=== PATIENT | male | born 1930 | race Hispanic/Latino ===

== ENCOUNTER 2017-11-29 15:46 | Observation (INO) | payer OTHER, MEDICARE ==
[~2017-11-29] VITALS: Ht 160 cm; Wt 67.4 kg
[~2017-11-29 15:46] MED LIST: CARV3.12 PO; FINA5TAB41 PO; IRON150C5 PO; PANT40TA25 PO; SIMV40TA59 PO; VALS160T29 PO; VALS1TAB75 PO
[2017-11-29 16:38] LABS: BASOPHILS % (AUTO) 0.8 % (0.0-5.0); EOSINOPHILS % (AUTO) 0.2 % (0.0-8.0); LYMPHOCYTES % (AUTO) 8.7 % (21.0-51.0); MEAN CORPUSCULAR HEMOGLOBIN 27.6 pg (27.0-33.0); MEAN CORPUSCULAR HGB CONC 33.9 g/dL (32.0-36.0); MEAN CORPUSCULAR VOLUME 81.5 fL (79-99); MONOCYTES % (AUTO) 11.6 % (3.0-13.0); NEUTROPHILS % (AUTO) 78.7 % (40.0-77.0); NUCLEATED RED BLOOD CELLS 0.9 % (0.0-0.19); PLATELET COUNT (AUTO) 139 K/uL (130-400); RED BLOOD CELL COUNT(AUTO) 2.47 MIL/uL (4.50-6.20); RED CELL DISTRIBUTION WIDTH 17.8 % (11.0-15.5); WHITE BLOOD COUNT (AUTO) 9.4 K/uL (4.8-10.8)
[2017-11-29 16:47] LABS: CREATININE 1.3 mg/dL (0.5-1.5); POTASSIUM 3.9 mmol/L (3.5-5.1)
[2017-11-29 16:48] LABS: HEMATOCRIT 20.2 % (42-54)
[2017-11-29 16:49] LABS: INR 1.29 (0.85-1.15); PARTIAL THROMBOPLASTIN TIME 31.5 SEC (26.3-35.5); PROTHROMBIN TIME 13.5 SEC (9.6-11.6)
[2017-11-29 17:07] LABS: ALBUMIN 3.4 g/dL (3.5-5.0); BILIRUBIN,TOTAL 0.5 mg/dL (0.2-1.0); TOTAL PROTEIN, SERUM 7.4 g/dL (6.0-8.3)
[2017-11-29 17:11] LABS: B-TYPE NATRIURETIC PEPTIDE 760 pg/mL (0-100)
[2017-11-29 17:44] LABS: APPEARANCE,URINE Clear (CLEAR); BILIRUBIN,URINE Negative (NEGATIVE); COLOR,URINE Yellow (YELLOW); GLUCOSE, URINE (UA) Negative (NEGATIVE); KETONES,URINE Negative (NEGATIVE); LEUKOCYTE ESTERASE ,URINE Negative (NEGATIVE); NITRATE,URINE Negative (NEGATIVE); OCCULT BLOOD,URINE Negative (NEGATIVE); PROTEIN,URINE Negative (NEGATIVE)
[2017-11-29] MEDS ORDERED: SODIUM CHLORIDE 0.9% 1000ML 1,000 ML IV ONE (17:49)
[2017-11-29] MEDS ORDERED: ACETAMINOPHEN 325 MG TAB PO PRN (20:15)
[2017-11-29] MEDS ORDERED: ONDANSETRON HCL MDV 20ML 2 MG/ML VIAL IVP PRN (20:15)
[2017-11-29] MEDS ORDERED: SODIUM CHLORIDE 0.9% 100 ML IV ONE (20:29)
[2017-11-29 21:41] VITALS: BP 150/58
[2017-11-29 23:00] VITALS: BP 128/53
[2017-11-29] MEDS ORDERED: LACTULOSE 20 GM/30 ML UDCUP PO PRN (23:45)
[2017-11-29] MEDS ORDERED: POTASSIUM CHLORIDE 10% ELIXIR 20 MEQ/15 ML UDCUP PO PRN (23:45)
[2017-11-29] MEDS ORDERED: POTASSIUM CHLORIDE 20 MEQ ERTAB PO PRN (23:45)
[2017-11-29] MEDS ORDERED: IPRATROPIUM/ALBUTEROL SULFATE 3 ML SOLUTION IH PRN (23:45)
[2017-11-29] MEDS ORDERED: POTASSIUM CHLORIDE 20MEQ/100ML 100 ML IV PRN (23:45)
[2017-11-29] MEDS ORDERED: LIDOCAINE HCL-MPF 1% 2ML VIAL IVP PRN (23:45)
[2017-11-29] MEDS ORDERED: HYDRALAZINE HCL 20 MG/ML VIAL IV PRN (23:45)
[2017-11-30] MEDS: FUROSEMIDE 10 MG/ML 2ML VIAL IV SCH ×2 (00:52→06:19)
[2017-11-30 03:00] VITALS: BP 150/63
[2017-11-30] MEDS ORDERED: VALS1TAB77 PO (04:56)
[2017-11-30] MEDS ORDERED: FERS325 PO (04:56)
[2017-11-30 06:12] LABS: HEMATOCRIT 29.2 % (42-54); MEAN CORPUSCULAR HEMOGLOBIN 26.2 pg (27.0-33.0); MEAN CORPUSCULAR HGB CONC 32.6 g/dL (32.0-36.0); MEAN CORPUSCULAR VOLUME 80.3 fL (79-99); NUCLEATED RED BLOOD CELLS 0.8 % (0.0-0.19); PLATELET COUNT (AUTO) 140 K/uL (130-400); RED BLOOD CELL COUNT(AUTO) 3.63 MIL/uL (4.50-6.20); RED CELL DISTRIBUTION WIDTH 16.5 % (11.0-15.5); WHITE BLOOD COUNT (AUTO) 11.6 K/uL (4.8-10.8)
[2017-11-30 06:23] LABS: CREATININE 1.1 mg/dL (0.5-1.5); POTASSIUM 3.9 mmol/L (3.5-5.1)
[2017-11-30 06:37] LABS: RETICULOCYTE % (AUTO) 2.85 % (0.42-2.23)
[2017-11-30 06:57] LABS: % IRON SATURATION 18.7 % (30-44)
[2017-11-30 07:43] VITALS: BP 151/59
[2017-11-30] MEDS ORDERED: PANTOPRAZOLE 40 MG/VIAL IVP SCH (09:00)
[2017-11-30 11:48] VITALS: BP 129/60
== END 2017-11-30 15:20 | disposition home or self-care (01) ==
LOC: EDH 15:46 → EDHIP 18:45 → 3AH 21:03
PROVIDERS: ADMIT Internal Medicine; ATTEND Internal Medicine
DX: D50.0 Iron deficiency anemia secondary to blood loss (chronic) (principal); I25.10 Atherosclerotic heart disease of native coronary artery without angina pectoris; I10 Essential (primary) hypertension; E78.5 Hyperlipidemia, unspecified; N40.0 Benign prostatic hyperplasia without lower urinary tract symptoms; Z95.1 Presence of aortocoronary bypass graft
CPT/HCPCS: 36415 ×2; 36430 ×2; 71045; 80048; 80053; 81003; 82270; 82550; 82607; 82728; 82746; 83880; 84484; 85025; 85027; 85610; 85730; 86850; 86900; 86901; 86922 ×2; 93005; 94664; 96374; 96375; 96376; 99285; C9113; G0378 ×21; J1940 ×2; J7030; P9016 ×2

== ENCOUNTER 2018-01-03 08:21 | Day surgery (SDC) | payer OTHER, MEDICARE ==
[~2018-01-03] VITALS: Ht 154.9 cm; Wt 62.1 kg
[~2018-01-03 08:21] MED LIST changes: +FERS325 PO; -IRON150C5 PO; +SODIUM CHLORIDE 0.9% 1000ML 1,000 ML IV ONE; -VALS1TAB75 PO; +VALS1TAB77 PO
[2018-01-03 08:54] VITALS: BP 133/53
[2018-01-03] MEDS ORDERED: TYL3 PO (09:17)
[2018-01-03] MEDS ORDERED: PROPOFOL 10 MG/ML 20ML VIAL IV ONE (10:31)
[2018-01-03 10:46] VITALS: BP 81/31
== END 2018-01-03 11:30 | disposition home or self-care (01) ==
LOC: ENDO 08:21 → DAH 08:21 → ENDO 11:30
PROVIDERS: ATTEND Internal Medicine Gastroenterology
DX: K31.7 Polyp of stomach and duodenum (principal); K29.50 Unspecified chronic gastritis without bleeding; E78.4 Other hyperlipidemia; D50.9 Iron deficiency anemia, unspecified; I25.10 Atherosclerotic heart disease of native coronary artery without angina pectoris; I10 Essential (primary) hypertension; I25.2 Old myocardial infarction; M19.90 Unspecified osteoarthritis, unspecified site; Z98.890 Other specified postprocedural states; Z80.0 Family history of malignant neoplasm of digestive organs; D64.9 Anemia, unspecified
CPT/HCPCS: 43239; 43251; 88305; 88312; 93005; A4606; J2704; J7030